=== PATIENT | female | born 1995 | race Caucasian/White ===

== ENCOUNTER 2020-11-09 08:03 | Day surgery (SDC) | payer BC, MEDICAID ==
[~2020-11-09 08:03] MED LIST: Lactated Ringers 1,000 ML IV SCH; Sodium Chloride 0.9% 10 ML Syringe FLUSH PRN
[2020-11-09] MEDS ORDERED: Propofol 200 MG/20 ML SDV ONE ×2 (08:36→09:05)
[2020-11-09] MEDS ORDERED: Midazolam 1 MG/ML 2 ML SDV ONE ×2 (08:36→09:05)
--- NOTE | 2020-11-09 09:16 | PCM.HPR ---
H & P Addendum review - H & P Addendum Review Date of Original H & P: 11/07/20 Date Reviewed: 11/09/20 Time Reviewed: 09:16 Patient was Examined: No Changes
--- NOTE | 2020-11-09 09:43 | PCM.OPNOTE ---
- General Post-Op/Procedure Note Date of Surgery/Procedure: 11/09/20 Operative Procedure(s): R CTR Pre Op Diagnosis: R CTS Post-Op Diagnosis: Same Anesthesia Technique: Local, MAC Primary Surgeon: Yoni Mccarthy Anesthesia Provider: Luana Hayden EBSeferino in mLs: 0 Complications: None Condition: Good
--- NOTE | 2020-11-09 12:14 | OR ---
Date of Procedure: 11/09/2020 PREOPERATIVE DIAGNOSIS: Right carpal tunnel syndrome. POSTOPERATIVE DIAGNOSIS: Right carpal tunnel syndrome. PROCEDURE: Right carpal tunnel release. ANESTHESIA: Local MAC. HISTORY: This 25-year-old female is here today for right carpal tunnel release and left carpal tunnel release in 2 weeks. EMG confirms moderate carpal tunnel syndrome bilaterally. Right hand is more symptomatic than the left, so this will be done first. We have reviewed the procedure as well as the risks and complications, and informed consent obtained. PROCEDURE IN DETAIL: Patient was brought to the operating room where IV sedation was administered. Right hand and forearm were exsanguinated and tourniquet inflated. Hand was prepped with ChloraPrep and draped sterilely. 5 mL of 1% lidocaine was used for local anesthesia. An incision was made in the palmar crease and extended through the subcutaneous tissue and palmar aponeurosis. The transverse carpal ligament was identified and sharply incised until the median nerve was visible. The ligament was split distally into the palm, then proximally into the wrist. Finger palpation and inspection revealed all constricting bands to be released. Wound was irrigated and skin closed with interrupted 4-0 Prolene vertical mattress suture. Antibiotic ointment and a bulky sterile pressure dressing applied. The patient tolerated the procedure well. Blood loss, none. She returned to postanesthesia in stable condition. NATHANIEL SINGH MD /[id number]
== END 2020-11-09 10:55 | disposition home or self-care (01) ==
LOC: LL.SDS 08:03
PROVIDERS: ATTEND Surgery
DX: G56.03 Carpal tunnel syndrome, bilateral upper limbs (principal); F17.210 Nicotine dependence, cigarettes, uncomplicated; N92.6 Irregular menstruation, unspecified; Z79.899 Other long term (current) drug therapy; Z98.890 Other specified postprocedural states; Z01.812 Encounter for preprocedural laboratory examination; Z20.822 Contact with and (suspected) exposure to COVID-19
CPT/HCPCS: 01830; J2250; J2704; J7120; U0002

== ENCOUNTER 2020-11-23 12:21 | Day surgery (SDC) | payer BC, MEDICAID ==
[~2020-11-23 12:21] MED LIST changes: +Midazolam 1 MG/ML 2 ML SDV ONE; +Propofol 200 MG/20 ML SDV ONE
[2020-11-23] MEDS ORDERED: Midazolam 1 MG/ML 2 ML SDV ONE ×2 (13:08→13:10)
[2020-11-23] MEDS ORDERED: Propofol 200 MG/20 ML SDV ONE (13:10)
[2020-11-23] MEDS ORDERED: Bacitracin Oint 1 GM U/D Packet TOP ONE (13:36)
--- NOTE | 2020-11-23 13:47 | PCM.HPR ---
H & P Addendum review - H & P Addendum Review Date of Original H & P: 11/07/20 Date Reviewed: 11/23/20 Time Reviewed: 12:15 Patient was Examined: No Changes
--- NOTE | 2020-11-23 13:48 | PCM.OPNOTE ---
- General Post-Op/Procedure Note Date of Surgery/Procedure: 11/23/20 Operative Procedure(s): L CTR Pre Op Diagnosis: L CTS Post-Op Diagnosis: Same Anesthesia Technique: Local, MAC Primary Surgeon: Yoni Mccarthy Anesthesia Provider: Luana MICHEL in mLs: 0 Complications: None Condition: Good
--- NOTE | 2020-11-24 09:34 | OR ---
Date of Procedure: 11/23/2020 PREOPERATIVE DIAGNOSIS: Left carpal tunnel syndrome. POSTOPERATIVE DIAGNOSIS: Left carpal tunnel syndrome. PROCEDURE: Left carpal tunnel release. ANESTHESIA: Local with IV sedation. PROCEDURE IN DETAIL: The patient was brought to the operating room after surgical site had been initialed by myself and the patient. IV sedation was administered. The left hand and forearm were exsanguinated and tourniquet inflated. Hand was prepped and draped sterilely. 4 mL of 1% lidocaine was used for local anesthesia. A routine incision was made in the palmar crease and extended through the subcutaneous tissue and palmar aponeurosis. The transverse carpal ligament was identified and sharply incised until the median nerve was visible. The ligament was split distally into the palm and proximally into the wrist. Finger palpation and inspection revealed all constricting bands to be released. Wound was closed with interrupted 4-0 Prolene vertical mattress sutures. Antibiotic ointment and a bulky sterile pressure dressing were applied. Patient tolerated the procedure well. ESTIMATED BLOOD LOSS: None. CONDITION: She returned to postanesthesia in stable condition. NATHANIEL SINGH MD /[id number]
--- NOTE | 2020-11-28 10:16 | PCM.SN.2 ---
- Free Text/Narrative Note: The patient recieved 2mg of versed at the begining of the case and another 2mg of versed after five minutes into the procedure. A total of 4mg of versed was administered. Luana Hayden AIX ADMINISTRATOR
== END 2020-11-23 15:02 | disposition home or self-care (01) ==
LOC: LL.SDS 12:21
PROVIDERS: ATTEND Surgery
DX: G56.03 Carpal tunnel syndrome, bilateral upper limbs (principal); N92.6 Irregular menstruation, unspecified; F17.210 Nicotine dependence, cigarettes, uncomplicated; Z01.812 Encounter for preprocedural laboratory examination; Z20.822 Contact with and (suspected) exposure to COVID-19; Z98.890 Other specified postprocedural states
CPT/HCPCS: 00840; 01830; 81025; J2250; J2704; J7120; U0002